=== PATIENT | male | born 1970 | race Caucasian/White ===

== ENCOUNTER 2024-03-30 20:52 | Emergency (ER) | payer OTHER, MEDICARE ==
[~2024-03-30] VITALS: Ht 190.5 cm; Wt 108.9 kg
[~2024-03-30 20:52] MED LIST: CYMBALTA60 MG PO; DULOXETINE HCL60 MG PO; LEVOTHYROXINE75 MCG PO; METFORMIN XR500 MG PO; PREDNISONE5 MG PO; SIMVASTATIN40 MG PO; ZESTRIL40 MG PO
[2024-03-30] MEDS ORDERED: SODIUM CHLORIDE 0.9% 1,000 ML IV ONE (21:10)
[2024-03-30] MEDS ORDERED: IOHEXOL 300 MG/ML 100 ML VIAL IV ONE (21:15)
[2024-03-30] MEDS ORDERED: Metoclopramide Hydrochloride 10 MG/2 ML AMP IV ONE (21:20)
[2024-03-30] MEDS ORDERED: diphenhydrAMINE hydrochloride 50 MG/ML VIAL IV ONE (21:20)
[2024-03-30 21:24] LABS: HEMATOCRIT 50.6 % (42.0-52.0); MEAN CELL VOLUME 81.5 fl (80.0-94.0); MEAN CORPUSCULAR HGB 27.4 pg (27.0-31.0); MEAN CORPUSCULAR HGB CONC 33.6 g/dl (33.0-37.0); MEAN PLATELET VOLUME 9.3 fl (9.6-12.3); PLATELET COUNT AUTOMATED 428 10*3/uL (130-400); RED BLOOD COUNT 6.21 10*6/uL (4.50-5.90); RED CELL DISTRI WIDTH 13.2 % (0-14.5); WHITE BLOOD COUNT 24.3 10*3/uL (4.8-10.8)
[2024-03-30 21:25] LABS: MANUAL DIFF REFLEX YES
[2024-03-30 21:41] LABS: ALKALINE PHOSPHATASE 97 U/L (46-116); BUN 18 mg/dl (9-23); CHLORIDE 94 mmol/L (98-107); ETHYL ALCOHOL 3.3 mg/dl (<3); LIPASE 32 U/L (12-53); POTASSIUM 3.8 mmol/L (3.4-5.1); SGPT/ALT 18 U/L (5-49); TOTAL PROTEIN 8.3 gm/dL (6.0-8.0)
[2024-03-30 21:44] LABS: BASOPHILS 1 % (0-1); PLATELET SUFFICIENCY HIGH (NORMAL); TOTAL CELLS COUNTED 100 #CELLS
[2024-03-30 21:45] LABS: BURR CELLS FEW; ROULEAUX SLIGHT; TOXIC GRANULATION SLIGHT
[2024-03-30] MEDS ORDERED: SODIUM CHLORIDE 0.9% 1,000 ML IV SCH (21:45)
[2024-03-31] MEDS ORDERED: Ondansetron Hydrochloride 4 MG/2 ML VIAL IV ONE ×2 (03:00→05:50)
[2024-03-31] MEDS ORDERED: AZITHROMYCIN 250 ML IV ONE (03:35)
[2024-03-31] MEDS ORDERED: Ceftriaxone Sodium 1 GM/10 ML SYR IV ONE (03:35)
[2024-03-31 06:58] LABS: BILIRUBIN Negative (Negative); BLOOD Negative (Negative); CLARITY Cloudy (Clear); COLOR Yellow (Yellow); GLUCOSE Trace (Negative); KETONE 3+ (Negative); LEUKO ESTERASE Negative (Negative); NITRITE Negative (Negative); SPECIFIC GRAVITY >= 1.030 (1.001-1.030)
[2024-03-31 07:06] LABS: URINE AMPHETAMINES Negative (1000ng/ml); URINE BARBITURATES Negative (200ng/ml); URINE BENZODIAZEPINES Negative (200ng/ml); URINE CANNABINOIDS (THC) Positive (50ng/ml); URINE COCAINE Negative (300ng/ml); URINE METHADONE Negative (300ng/ml); URINE OPIATES Negative (300ng/ml); URINE PHENCYCLIDINE Negative (25ng/ml)
[2024-03-31 07:08] LABS: BACTERIA 2+; EPITHELIAL CELLS 41-50
== END 2024-03-31 07:48 | disposition short-term general hospital (02) ==
LOC: ED 20:52
PROVIDERS: Internal Medicine
DX: Q89.1 Congenital malformations of adrenal gland (principal); R11.2 Nausea with vomiting, unspecified; R19.7 Diarrhea, unspecified; E11.40 Type 2 diabetes mellitus with diabetic neuropathy, unspecified; I10 Essential (primary) hypertension; E03.9 Hypothyroidism, unspecified; Z79.899 Other long term (current) drug therapy

== ENCOUNTER → 2024-05-02 | Outpatient (CLI) | payer OTHER, MEDICARE | END | disposition home or self-care (01) | LOC: CT 10:38 | PROVIDERS: ATTEND Internal Medicine | DX: N20.0 Calculus of kidney (principal); J98.11 Atelectasis; R10.12 Left upper quadrant pain; R93.41 Abnormal radiologic findings on diagnostic imaging of renal pelvis, ureter, or bladder; E27.8 Other specified disorders of adrenal gland ==

== ENCOUNTER 2024-05-20 07:46 | Emergency (ER) | payer OTHER, MEDICARE ==
[~2024-05-20] VITALS: Ht 190.5 cm; Wt 117.9 kg
[2024-05-20] MEDS ORDERED: SODIUM CHLORIDE 0.9% 1,000 ML IV ONE (08:00)
[2024-05-20] MEDS ORDERED: Prochlorperazine Edisylate 10 MG/2 ML VIAL IV ONE (08:00)
[2024-05-20] MEDS ORDERED: MORPHINE Sulfate 2 MG/ML SYR IV ONE (08:00)
[2024-05-20] MEDS ORDERED: diphenhydrAMINE hydrochloride 50 MG/ML VIAL IV ONE (08:00)
[2024-05-20] MEDS ORDERED: GLIMEPIRIDE2 MG PO (08:06)
[2024-05-20] MEDS ORDERED: AMLODIPINE BES2.5 MG PO (08:07)
[2024-05-20] MEDS ORDERED: IOHEXOL 300 MG/ML 100 ML VIAL IV ONE (08:15)
[2024-05-20 08:43] LABS: BASO # 0.1 10*3/uL (0.0-0.1); BASO % 0.6 % (0.0-1.0); EOS # 0.1 10*3/uL (0.0-0.4); EOS % 0.7 % (1.0-4.0); HEMATOCRIT 48.3 % (42.0-52.0); LYMPH # 2.2 10*3/uL (1.3-4.4); MEAN CELL VOLUME 85.6 fl (80.0-94.0); MEAN CORPUSCULAR HGB 27.5 pg (27.0-31.0); MEAN CORPUSCULAR HGB CONC 32.1 g/dl (33.0-37.0); MEAN PLATELET VOLUME 9.6 fl (9.6-12.3); MONO # 0.6 10*3/uL (0.1-1.0); MONO % 3.5 % (3.0-9.0); NEUT # 13.8 10*3/uL (2.3-7.9); NEUT % 81.7 % (47.0-73.0); PLATELET COUNT AUTOMATED 359 10*3/uL (130-400); RED BLOOD COUNT 5.64 10*6/uL (4.50-5.90); WHITE BLOOD COUNT 16.9 10*3/uL (4.8-10.8)
[2024-05-20 09:42] LABS: ALKALINE PHOSPHATASE 82 U/L (46-116); BUN 14 mg/dl (9-23); CHLORIDE 105 mmol/L (98-107); LIPASE 69 U/L (12-53); POTASSIUM 4.3 mmol/L (3.4-5.1); SGPT/ALT 18 U/L (5-49); TOTAL PROTEIN 7.5 gm/dL (6.0-8.0)
[2024-05-20] MEDS ORDERED: FLOMAX0.4 MG PO (09:54)
[2024-05-20] MEDS ORDERED: PERCOCET 5-3251 EACH PO (09:54)
[2024-05-20] MEDS ORDERED: Ondansetron4 MG PO (09:54)
[2024-05-20] MEDS ORDERED: CIPRO500 MG PO (09:54)
[2024-05-20] MEDS ORDERED: Ceftriaxone Sodium 1 GM/10 ML SYR IV ONE (09:55)
== END 2024-05-20 09:59 | disposition home or self-care (01) ==
LOC: ED 07:46
PROVIDERS: Emergency Medicine
DX: N20.0 Calculus of kidney (principal); R11.2 Nausea with vomiting, unspecified; R19.7 Diarrhea, unspecified; E03.9 Hypothyroidism, unspecified; I10 Essential (primary) hypertension; E11.40 Type 2 diabetes mellitus with diabetic neuropathy, unspecified